=== PATIENT | female | born 1930 | race Caucasian/White ===

== ENCOUNTER 2020-02-02 19:10 | Inpatient (IN) ==
[2020-02-02] MEDS ORDERED: DUONEB (A & A) INH ONE (20:54)
[2020-02-02 21:27] LABS: BASO# 0.26 X1000 (0.0-0.2); BASO% 1.6 % (0.0-0.8); HEMATOCRIT 44.7 % (37.0-47.0); HEMOGLOBIN 14.5 g/dL (12.0-16.0); IMM GRAN# 1.21 X1000 (0.0-0.04); IMM GRAN% 7.6 % (0.0-0.5); LYMPH# 2.05 X1000 (1.2-3.4); LYMPH% 12.8 % (20.5-51.1); MCH 30.5 PG (27-31); MCHC 32.4 g/dL (33-37); MCV 93.9 FL (81-99); MONO# 1.46 X1000 (0.11-0.59); MONO% 9.1 % (1.7-9.3); MPV 10.3 FL (7.4-10.4); NEUT# 11.04 X1000 (1.4-6.5); NEUT% 68.9 % (42.2-75.2); PLT 283 X1000 (130-400); RBC 4.76 XMIL (4.2-5.4); RDW 14.2 % (11.5-14.5); WBC 16.02 X1000 (4.8-10.8)
--- NOTE | 2020-02-02 21:34 | Diag Imaging Result Doc PS360 ---
EXAM: CHEST-2 VIEWS 02/02/2020 HISTORY: cough TECHNIQUE: PA and lateral chest COMMENT: Compared to 01/31/2020 the lung bases are slightly clearer and better expanded. There is still some hazy opacity in the left costophrenic angle which may be due to fibrosis or a fat pad. This is slightly worse than on the previous study of 01/08/2020 however. IMPRESSION: Improved pulmonary edema and/or pneumonia. Electronically signed by Gume Lay 02/02/2020 9:32 PM
[2020-02-02 21:40] LABS: BANDS 3 % (0-1); LYMPHS 15 % (21-51); MONO 6 % (1-9); SEGS 73 % (42-75)
[2020-02-02 21:47] LABS: ALBUMIN 3.8 g/dL (3.5-5.0); CALCIUM 9.2 mg/dL (8.8-10.2); CREATININE 1.7 mg/dL (0.5-0.9); POTASSIUM 4.8 mmol/L (3.5-5.1); TOTAL BILIRUBIN 0.21 mg/dL (0.20-1.00); TOTAL PROTEIN 7.5 g/dL (6.3-8.3)
--- NOTE | 2020-02-02 23:43 | PROVIDER DOCUMENTATION ---
This chart was entered by Carmel Bermudez Scribe, acting as scribe for Harsh Hebert MD. HPI-General Adult - General Chief Complaint: Cold Symptoms Stated Complaint: "wants to feel better" Time Seen by Provider: 02/02/20 20:29 Source: patient Allergies/Adverse Reactions: Patient Allergies Allergy/AdvReac Type Severity Reaction Status Date / Time promethazine HCl * Allergy Mild RASH Verified 01/31/20 16:18 [From Mepergan] meperidine HCl * Allergy RASH Verified 01/31/20 16:18 [From Mepergan] procaine HCl * AdvReac Unknown palpatation Verified 01/31/20 16:18 [From Novocain] s Home Medications: Home Medication List Medication Instructions Recorded Confirmed Last Taken Type Amiodarone HCl 100 mg PO DAILY 11/03/15 02/02/20 07/26/16 07:30 History Biotin 1 mg PO DAILY 11/03/15 02/02/20 07/26/16 07:30 History Calcium 600 mg PO BID 11/03/15 02/02/20 07/26/16 07:30 History Carvedilol 12.5 mg PO BID 11/03/15 02/02/20 07/26/16 07:30 History Clopidogrel [Plavix] 75 mg PO DAILY 11/03/15 02/02/20 07/26/16 07:30 History Furosemide 40 mg PO BID 11/03/15 02/02/20 07/26/16 07:30 History Levothyroxine Sodium 75 mcg PO QAM 11/03/15 02/02/20 07/26/16 07:30 History Potassium Chloride E.r. [Klor-Con] 10 meq PO DAILY 11/03/15 02/02/20 07/26/16 07:30 History CefDINIR [Omnicef] 300 mg PO BID #20 capsule 07/29/16 02/02/20 Unknown Rx Alprazolam 1 tab PO QHS PRN 04/11/19 02/02/20 Unknown History Ascorbic Acid [Vitamin C] 1 tab PO DAILY 04/11/19 02/02/20 Unknown History Ergocalciferol (Vitamin D2) 1 cap PO DIRECTED 04/11/19 02/02/20 Unknown History [Vitamin D] Gabapentin 1 cap PO BID 04/11/19 02/02/20 Unknown History Hydrocodone Bit/Acetaminophen 1 tab PO TID 04/11/19 02/02/20 Unknown History [Hydrocodon-Acetaminophen 5-325] Lisinopril 1 tab PO DAILY 04/11/19 02/02/20 Unknown History Levofloxacin [Levaquin] 500 mg PO DAILY #5 tab 01/31/20 02/02/20 Unknown Rx Methylprednisolone [Medrol Dosepak] 4 mg PO DIRECTED #1 pkg 01/31/20 02/02/20 Unknown Rx - History of Present Illness -Gen Adult Nature of Presenting Problems: pt is a 89 yr old female presenting with continued cough, shortness of breath and weakness which started about 10days ago. PCP prescribed zpak and she has been doing breathing treatment at home without improved sxs.. pt also reports HTN today, reports she was seen 2 days ago and refused admission. pt admits weakness worsening, increased cough, no relief with Levaquin and steroids [id number] Review of Systems - Adult - REVIEW OF SYSTEMS - ADULT Constitutional: reports: chills, fatique. denies: fever Eyes: reports: no symptoms reported Ears, Nose, Mouth & Throat: denies: ear pain, sinus problem, throat pain Cardiovascular: reports: no symptoms reported Respiratory: reports: cough, dyspnea on exertion, shortness of breath, wheezing Gastrointestinal: denies: abdominal pain, diarrhea, nausea, vomiting Genitourinary: denies: dysuria, frequency, flank pain Musculoskeletal: reports: muscle aches, muscle weakness. denies: back pain Integumentary: reports: no symptoms reported Neurological: denies: dizziness/vertigo, headache/migraines Psychiatric: reports: no symptoms reported Endocrine: reports: no symptoms reported Hematologic/Lymphatic: reports: no symptoms reported Allergic/Immunologic: reports: no symptoms reported All Other Systems: Reviewed and Negative Past History - Adult - PAST MEDICAL HISTORY-ADULT Review of Records: reports: Old Records Reviewed, Nursing Assessment Review, Medications Reviewed, Social history reviewed & non-contributory. Major Childhood Illnesses: reports: denies history Cardiovascular: reports: CHF, HTN, pacemaker Respiratory: reports: COPD Gastrointestinal: reports: denies history Obstetrical/Gynecological: reports: denies history Genitourinary: reports: denies history Musculoskeletal: reports: denies history Neurological: reports: denies history Endocrine/Immune: reports: thyroid disorder (hypo) Other Conditions: reports: denies history - PRIOR SURGERIES/PROCEDURES Surgical/Procedure History: reports: appendectomy, orthopedic (extremity), other (cataract) - IMMUNIZATION STATUS Childhood Immunizations: See Nurse Assessment Flu Vaccine: See Nurse Assessment - FAMILY HISTORY Family History: reviewed, not pertinent - SOCIAL HISTORY Smoking: quit greater than 1 year Substance Use: denies Living Situation: family Physical Exam-General - PHYSICAL EXAM-ADULT Initial Vital Signs Reviewed: Yes - CONSTITUTIONAL General Appearance: alert, no apparent distress - EYES Eyes: PERRL/EOMI - HEAD, EARS, NOSE, MOUTH & THROAT HENMT: normocephalic/atraumatic, moist mucous membranes, TMs normal, pharynx normal, hearing deficit - NECK Neck: non-tender, full range of motion, supple, normal inspection - RESPIRATORY Respiratory: chest non-tender, normal breath sounds, no respiratory distress, no accessory muscle use, wheezing (bibasilar wheezing) - CARDIOVASCULAR Cardiovascular: normal peripheral pulses, regular rate, rhythm - GASTROINTESTINAL (ABDOMEN) Abdominal Exam: normal bowel sounds, non tender, soft - LYMPHATIC Lymphatic: no adenopathy - MUSCULOSKELETAL Back Exam: normal inspection Extremity: normal range of motion, non-tender, normal gait, normal inspection - SKIN Integumentary: normal color, normal turgor, warm/dry - NEUROLOGIC Neurologic: grossly normal, no motor/sensory deficits - PSYCHIATRIC Psych/Mental Status: normal mood/affect, normal thought content, normal thought process, oriented x 3 Progress - PLAN OF CARE/RESULTS Progress/Plan/Lab Results: Vital Signs - 8 hr 02/02/20 19:17 Temperature 98.6 F Pulse Rate 62 Respiratory Rate 18 Blood Pressure 156/81 O2 Sat by Pulse Oximetry 93 L Orders Category Date Time Status NEWS Score 2-4:Order NEWS Lactate Series NOW Care 02/02/20 19:22 Active LACTATE, PLASMA [CHEM] Q3H Lab 02/02/20 19:45 Uncollected LACTATE, PLASMA [CHEM] Q3H Lab 02/02/20 22:45 Uncollected LACTATE, PLASMA [CHEM] Q3H Lab 02/03/20 01:45 Uncollected Result Diagrams: 02/02/20 21:14 02/02/20 21:14 - REASSESSMENT Reassessment #1 Time Reassessed: 11:00 Status: improving (Duoneb has helped a little but but still coughing and some s ob. Hospitalised paged for admission) - XRAY 1 XRAY Study: Chest (improved pul. edema and /or pneumonia) Impression: Abnormal ( Signed EXAM: CHEST-2 VIEWS 02/02/2020 HISTORY: cough TECHNIQUE: PA and lateral chest COMMENT: Compared to 01/31/2020 the lung bases are slightly clearer and better expanded. There is still some hazy opacity in the left costophrenic angle which may be due to fibrosis or a fat pad . This is slightly worse than on the previous study of 01/08/2020 however. IMPRESSION: Improved pulmonary edema and/or pneumonia. Electronically signed by Gume Lay 02/02/2020 9:32 PM 02/02/202131 Interpreting Physician: Gume Lay MD Dictated Date/Time: 02/02/202130 cc: Harsh Hebert MD; None,PCP) Comparison with other Films: changes noted (improvement from 01/31/20) - CONSULTS/PCP/HOSPITALIST Notification #1 *Consult/PCP/Hospitalist*: Dr. Guzmán Time Discussed: 23:42 Consult Disposition: Admit (accepts admission) Departure - Departure Date of Disposition Decision: 02/02/20 Time of Disposition Decision: 23:40 DIAGNOSIS: Renal insufficiency COPD (chronic obstructive pulmonary disease) Qualifiers: COPD type: COPD with acute exacerbation Qualified Code(s): J44.1 - Chronic obstructive pulmonary disease with (acute) exacerbation CHF (congestive heart failure) Qualifiers: Heart failure type: unspecified Heart failure chronicity: acute on chronic Mike lified Code(s): I50.9 - Heart failure, unspecified Disposition: ADMITTED INPATIENT 09 Certified Medical Emergency: Emergent Condition: Stable Referrals and Follow-Ups: None,PCP [Primary Care Provider] - - Critical Care Note This patient required my direct & personal management of CC.: No Attestation - Physician/ BUSTER Attestation Patient care was provided by Advanced Practice Provider:: No The physician spent face to face time with patient:: Yes Advanced Practice Provider documentation review:: Supervising physician onsite and consulted in the evaluation and care of this patient. The physician did have a face to face encounter with the patient. This chart was documented by the indicated scribe, (Carmel Bermudez, [place]) and accurately reflects the services I performed and decisions made by me, Harsh Hebert MD, as attested by the provider's signature.
[2020-02-03] MEDS ORDERED: LASIX IV ONE (00:21)
[2020-02-03 01:09] LABS: URINE SOURCE CLEAN CATCH
[2020-02-03] MEDS ORDERED: APRESOLINE IV PRN (01:31)
[2020-02-03] MEDS ORDERED: TYLENOL PO PRN (02:04)
[2020-02-03 02:12] LABS: BILIRUBIN URINE NEGATIVE (NEGATIVE); BLOOD URINE NEGATIVE (NEGATIVE); COLOR YELLOW; GLUCOSE URINE NEGATIVE (NEGATIVE); KETONE URINE NEGATIVE (NEGATIVE); LEUKOCYTES URINE NEGATIVE (NEGATIVE); NITRITE URINE NEGATIVE (NEGATIVE); PH URINE 7.5; PROTEIN URINE NEGATIVE (NEGATIVE); TURBIDITY URINE CLEAR (CLEAR); UROBILINOGEN URINE NORMAL (NORMAL)
[2020-02-03 02:13] LABS: UR EPITHELIAL CELLS <10 /HPF (<10); URINE BACTERIA NEGATIVE /HPF; URINE RBC <10 /HPF (<10); URINE WBC <10 /HPF (<10)
[2020-02-03 05:03] LABS: BASO# 0.27 X1000 (0.0-0.2); BASO% 1.6 % (0.0-0.8); HEMATOCRIT 45.8 % (37.0-47.0); HEMOGLOBIN 14.8 g/dL (12.0-16.0); IMM GRAN# 1.02 X1000 (0.0-0.04); IMM GRAN% 6.2 % (0.0-0.5); LYMPH# 2.49 X1000 (1.2-3.4); LYMPH% 15.1 % (20.5-51.1); MCH 30.2 PG (27-31); MCHC 32.3 g/dL (33-37); MCV 93.5 FL (81-99); MONO# 1.58 X1000 (0.11-0.59); MONO% 9.6 % (1.7-9.3); MPV 10.2 FL (7.4-10.4); NEUT# 11.08 X1000 (1.4-6.5); NEUT% 67.5 % (42.2-75.2); PLT 287 X1000 (130-400); RDW 14.1 % (11.5-14.5); WBC 16.44 X1000 (4.8-10.8)
[2020-02-03 05:22] LABS: CALCIUM 9.1 mg/dL (8.8-10.2); CREATININE 1.8 mg/dL (0.5-0.9); POTASSIUM 4.2 mmol/L (3.5-5.1)
--- NOTE | 2020-02-03 05:42 | HISTORY AND PHYSICAL ---
CHIEF COMPLAINT: Cold symptoms. HISTORY OF PRESENT ILLNESS: This is an 89-year-old female who reported here two days ago and was given a Z-Nik and Levaquin. She refused admission two days ago and was discharged home with these medications. She has had a history of ten days of increased shortness of breath and cough with weakness. She has a history of hypertension, COPD, coronary artery disease, CHF, hypothyroidism. She does have a pacemaker implanted. Her initial workup, chest x-ray stated improved pulmonary edema and/or pneumonia. A CT of the thorax without contrast is pending. She was noted to have leukocytosis, however, she has been on oral steroids so this is unreliable. She has not been febrile from what I understand. At any rate, at this time she will be admitted for evaluation and treatment. PAST MEDICAL HISTORY: See HPI. PREVIOUS SURGICAL HISTORY: Pacemaker implantation, appendectomy, back surgery, right shoulder surgery, cardiac stenting, cataract removal. SOCIAL HISTORY: No alcohol or illicit drug use. No tobacco presently. She was a former smoker for many years. Stopped smoking I think maybe eight years ago but did smoke a pack per day for 35 or greater years. FAMILY HISTORY: She stated was positive for hypertension and diabetes. ALLERGIES: Phenergan, Demerol, procaine and novocaine. HOME MEDICATIONS: Medrol Dosepak as directed, alprazolam 0.25 mg p.o. night, amiodarone 100 mg p.o. daily, vitamin C 1000 mg daily, biotin 1 mg p.o. daily, calcium 600 mg p.o. daily, carvedilol 12.5 mg p.o. b.i.d., Plavix 75 mg p.o. daily, vitamin D2 50,000 units as directed, Lasix 40 mg p.o. b.i.d., gabapentin 100 mg p.o. b.i.d., [place] 5 one p.o. t.i.d., Levaquin 500 mg p.o. daily, levothyroxine 75 mcg p.o. daily, lisinopril 40 mg p.o. daily, potassium chloride 10 mEq p.o. daily. REVIEW OF SYSTEMS: Fourteen-point review of systems conducted with the patient. Pertinent positives listed above in the HPI. All other systems reviewed and found to be negative. PHYSICAL EXAMINATION: VITAL SIGNS: Temperature 98.6, pulse 60, respirations 18, blood pressure 196/88, oxygen saturation 94% on room air. GENERAL: Somewhat agitated 89-year-old female lying in the ER stretcher. She is alert and oriented times 3. Answers all questions appropriately. Is very irritated, stating over and over she just wants to feel better. She is in no acute distress at this time. HEENT: Head is atraumatic, normocephalic. Pupils equal, round and reactive to light. Extraocular eye movement is intact. Sclerae are anicteric. Conjunctiva is pink. Oral mucosa is moist. NECK: Supple. No JVD. No thyromegaly. Trachea is midline. No cervical lymphadenopathy. CARDIAC: S1, S2 appreciated. No murmurs, gallops, rubs. LUNGS: Bilateral crepitations noted, decreased bilaterally. No wheezing. Symmetric rise and fall with respirations. ABDOMEN: Soft, nondistended, nontender. Bowel sounds present in all four quadrants. Normoactive. No pulsatile mass. No organomegaly. EXTREMITIES: No clubbing, cyanosis or edema. Two-plus pedal pulses bilaterally. GENITOURINARY: No bladder distention. Patient voids. Otherwise deferred. NEUROLOGICAL: She is alert and oriented times 3. No focal motor deficits. Otherwise nonfocal examination. DIAGNOSTIC DATA: Chest x-ray shows improved pulmonary edema and/or pneumonia at the bilateral bases. Clear and better expanded than previous examination. Noncontrasted CT of the chest is pending. LABORATORY DATA: WBC 16.02. Hemoglobin 14.5. Hematocrit 44.7. Platelet count 289. Sodium 141. Potassium 4.8. Chloride 101. Carbon dioxide 28. BUN 39. Creatinine 1.7. Glucose 174. Urine pending. ASSESSMENT: 1. Chronic obstructive pulmonary disease with exacerbation. 2. Questionable bilateral lower lobe pneumonia. 3. Congestive heart failure. 4. Hypertension. 5. Hypothyroidism. PLAN: Admit patient to the medical floor. Continue Levaquin [address] of the thorax has been ordered. Hopefully will help differentiate between pulmonary edema and pneumonia. Will discontinue steroids at this time. Continue patient's home medications for hypertension. Will also add a p.r.n. medication as she is acutely hypertensive now. Will give hydralazine 10 mg IV as needed for systolic blood pressure greater than 165. DuoNebs. Echocardiogram tomorrow. Follow laboratory data. Further recommendations per patient clinical course. Dictated by ARANZA Johnson for Manjeet Gaspar MD cc: ARANZA Johnson MD
[2020-02-03] MEDS: SYNTHROID PO SCH (06:13)
--- NOTE | 2020-02-03 07:07 | Diag Imaging Result Doc PS360 ---
EXAM: CHEST-1 VIEW 02/03/2020 HISTORY: news TECHNIQUE: AP portable at 0616 COMMENT: There is no evidence of acute cardiac or pulmonary disease and compared to 02/02/2020 there has been no significant change. IMPRESSION: Stable chest. Electronically signed by Gume Lay 02/03/2020 7:04 AM
--- NOTE | 2020-02-03 07:24 | Diag Imaging Result Doc PS360 ---
EXAM: CT THORAX W/O CONTRAST INDICATION: PNA? TECHNIQUE: This exam was performed using automated exposure control, adjustment of mA or kV according to patient size, and/or use of iterative reconstruction technique. COMPARISON: None. FINDINGS: There are mild patchy groundglass opacities in the lower lobes bilaterally, the right middle lobe, and the lingula likely representing mild air trapping. Mild atypical pneumonitis is a possibility, however. There is a calcified granuloma in the right lower lobe and there are several scattered tiny noncalcified nodules bilaterally. All of the nodules are 4 mm or less and statistically most likely represent noncalcified granulomata. There is no pleural fluid collection and no pneumothorax. There are a few calcified mediastinal and right hilar lymph nodes indicating prior granulomatous disease. There are coronary artery calcifications. There is no cardiomegaly. A pacemaker is noted. Limited views of the upper abdomen reveal pancreatic and left renal atrophy. IMPRESSION: 1.Mild patchy groundglass opacities in the mid and lower lung zones suggesting air trapping. However, mild atypical pneumonitis is also a possibility. 2.Other incidental/nonacute findings detailed above. Electronically signed by Kirean Matthews 02/03/2020 7:21 AM
[2020-02-03] MEDS ORDERED: LASIX PO SCH (09:00)
[2020-02-03] MEDS: NEURONTIN PO SCH ×2 (09:33→21:26)
[2020-02-03] MEDS: KLOR-CON PO SCH (09:33)
[2020-02-03] MEDS: NORCO-5 PO SCH ×3 (09:33→21:26)
[2020-02-03] MEDS: VITAMIN C PO SCH (09:34)
[2020-02-03] MEDS: LEVAQUIN PO SCH (09:34)
[2020-02-03] MEDS: PLAVIX PO SCH (09:34)
[2020-02-03] MEDS: CORDARONE PO SCH (09:35)
[2020-02-03] MEDS: CALTRATE 600 PO SCH ×2 (09:35→21:26)
[2020-02-03] MEDS: COREG PO SCH ×2 (09:35→21:26)
[2020-02-03] MEDS: PRINIVIL PO SCH (09:35)
[2020-02-03] MEDS: BIOTIN PO SCH (10:36)
[2020-02-03 11:13] LABS: INR 1.01; PROTIME 13.5 Seconds (11.0-16.0)
[2020-02-03 11:14] LABS: PTT 25.2 Seconds (22.3-41.8)
[2020-02-03 11:39] LABS: BASO# 0.12 X1000 (0.0-0.2); BASO% 0.9 % (0.0-0.8); HEMATOCRIT 44.4 % (37.0-47.0); HEMOGLOBIN 14.6 g/dL (12.0-16.0); IMM GRAN% 5.2 % (0.0-0.5); LYMPH# 3.08 X1000 (1.2-3.4); LYMPH% 22.7 % (20.5-51.1); MCH 30.9 PG (27-31); MCHC 32.9 g/dL (33-37); MCV 93.9 FL (81-99); MONO# 1.33 X1000 (0.11-0.59); MONO% 9.8 % (1.7-9.3); MPV 10.4 FL (7.4-10.4); NEUT# 8.32 X1000 (1.4-6.5); NEUT% 61.4 % (42.2-75.2); PLT 291 X1000 (130-400); RBC 4.73 XMIL (4.2-5.4); RDW 14.4 % (11.5-14.5); WBC 13.55 X1000 (4.8-10.8)
[2020-02-03 12:32] LABS: BANDS 8 % (0-1); LYMPHS 18 % (21-51); MONO 12 % (1-9); SEGS 58 % (42-75)
--- NOTE | 2020-02-03 14:32 | PROGRESS NOTE ---
DATE: 02/03/2020 BRIEF PROGRESS NOTE: Patient admitted with ongoing cough and dyspnea. She was in the ER a few days ago, diagnosed with pneumonia, sent home on steroids and Levaquin. She returns because she was continuing to have cough and had some slight worsening of her shortness of breath. On initial evaluation here, her x-ray actually looked improved. CT showed air trapping but no definitive pneumonia. She did have elevated creatinine of uncertain significance. Her most recent repeat just a few days ago was the same, but prior to the 30 of January, her creatinine was significantly better at 1.3, so she may have a little bit of an acute kidney injury as well. Patient does have some underlying COPD and is a former smoker, but no wheezing or significantly decreased air entry was noted to suggest COPD exacerbation. As her pneumonia appeared to be improving, she was continued on Levaquin. As her BNP was slightly elevated, she was given a dose of Lasix and is symptomatically improved this afternoon. Given possible acute kidney injury, we will hold off on further diuresis and monitor. If the patient continues to do well, then may be able to discharge home tomorrow. Given elevation in BNP and improvement after being given Lasix, echo was obtained but the read is pending at this time.
[2020-02-03 15:10] LABS: ALB/GLOB RATIO 1.1; ALBUMIN 3.5 g/dL (3.5-5.0); CALCIUM 9.1 mg/dL (8.8-10.2); CREATININE 1.8 mg/dL (0.5-0.9); POTASSIUM 4.1 mmol/L (3.5-5.1); TOTAL BILIRUBIN 0.45 mg/dL (0.20-1.00); TOTAL PROTEIN 6.8 g/dL (6.3-8.3)
[2020-02-03] MEDS: XANAX PO PRN (23:42)
[2020-02-04 07:24] LABS: BASO# 0.23 X1000 (0.0-0.2); BASO% 2.1 % (0.0-0.8); EOS# 0.09 X1000 (0.0-0.7); EOS% 0.8 % (0.0-10.0); HEMATOCRIT 44.7 % (37.0-47.0); HEMOGLOBIN 14.2 g/dL (12.0-16.0); IMM GRAN# 1.09 X1000 (0.0-0.04); IMM GRAN% 9.7 % (0.0-0.5); LYMPH# 4.08 X1000 (1.2-3.4); LYMPH% 36.4 % (20.5-51.1); MCH 30.2 PG (27-31); MCHC 31.8 g/dL (33-37); MCV 95.1 FL (81-99); MONO# 1.49 X1000 (0.11-0.59); MONO% 13.3 % (1.7-9.3); NEUT# 4.22 X1000 (1.4-6.5); NEUT% 37.7 % (42.2-75.2); PLT 290 X1000 (130-400); RDW 14.5 % (11.5-14.5)
[2020-02-04 07:40] LABS: CALCIUM 9.4 mg/dL (8.8-10.2); CREATININE 1.9 mg/dL (0.5-0.9); POTASSIUM 4.5 mmol/L (3.5-5.1)
[2020-02-04] MEDS: SYNTHROID PO SCH (07:45)
[2020-02-04] MEDS: NORCO-5 PO SCH ×3 (08:20→20:51)
[2020-02-04] MEDS: COREG PO SCH ×2 (08:21→20:53)
[2020-02-04] MEDS: CALTRATE 600 PO SCH ×2 (08:21→20:53)
[2020-02-04] MEDS: LEVAQUIN PO SCH (08:21)
[2020-02-04] MEDS: VITAMIN C PO SCH (08:21)
[2020-02-04] MEDS: NEURONTIN PO SCH ×2 (08:21→20:51)
[2020-02-04] MEDS: LASIX PO SCH (08:21)
[2020-02-04] MEDS: PLAVIX PO SCH (08:21)
[2020-02-04] MEDS: BIOTIN PO SCH (08:21)
[2020-02-04] MEDS: KLOR-CON PO SCH (08:22)
[2020-02-04] MEDS: PRINIVIL PO SCH (08:22)
[2020-02-04] MEDS: CORDARONE PO SCH (08:22)
--- NOTE | 2020-02-04 14:12 | PROGRESS NOTE ---
DATE: 02/04/2020 SUBJECTIVE: The patient reports feeling better. She is not requiring any oxygen supplementation at this time. She is able to get up and walk some and not getting badly short of breath, just a little bit according to her. OBJECTIVE: Vital Signs: Temperature 98 degrees, heart rate 59, respiratory rate 18, blood pressure 133/77. O2 saturation 93% on room air. General: This is an 89-year-old female lying in bed, in no acute distress. Cardiovascular: S1, S2 heard. No murmurs, gallops, or rubs. Regular rate and rhythm. Respiratory: Exam bilateral crepitations noted with decreased breath sounds globally. There is no wheezing. Patient is not using any accessory muscles or having work of breathing. Abdomen: Soft, nontender to palpation. Bowel sounds present. No organomegaly. Extremities: No clubbing, cyanosis, or edema. Peripheral pulses present in both legs. Neurological: Patient is alert and oriented x3. Moves 4 extremities. LABORATORY DATA: Reviewed. ASSESSMENT AND PLAN: 1. Bilateral lower lobe pneumonia. That condition is getting better. Patient is not requiring any oxygen. The patient although is getting a little bit short of breath, so considering that this patient lives alone, I prefer to go ahead and keep her 1 more day in the hospital and if she feels better tomorrow then we will let her go. 2. Chronic obstructive pulmonary disease exacerbation secondary to condition #1. We will continue with breathing treatments every 4 hours and steroids as well. 3. Congestive heart failure. I think at this point, patient is stable from that condition. We will continue home medications. 4. Hypertension. Blood pressure is under control. We will continue with the same management. 5. Hypothyroidism. We will continue home doses of Synthroid. 6. Disposition. If this patient continues to feel better, then will discharge her tomorrow. cc: Binh Rodriguez MD
[2020-02-04] MEDS: XANAX PO PRN (22:55)
[2020-02-05] MEDS ORDERED: MELATONIN PO ONE (02:00)
[2020-02-05] MEDS: SYNTHROID PO SCH (06:17)
[2020-02-05 08:03] LABS: POTASSIUM 4.1 mmol/L (3.5-5.1)
[2020-02-05 08:38] LABS: BASO# 0.26 X1000 (0.0-0.2); BASO% 2.3 % (0.0-0.8); EOS% 0.9 % (0.0-10.0); HEMATOCRIT 43.6 % (37.0-47.0); HEMOGLOBIN 13.8 g/dL (12.0-16.0); IMM GRAN# 0.95 X1000 (0.0-0.04); IMM GRAN% 8.4 % (0.0-0.5); LYMPH# 3.91 X1000 (1.2-3.4); LYMPH% 34.5 % (20.5-51.1); MCH 30.1 PG (27-31); MCHC 31.7 g/dL (33-37); MONO% 14.1 % (1.7-9.3); MPV 10.4 FL (7.4-10.4); NEUT# 4.52 X1000 (1.4-6.5); NEUT% 39.8 % (42.2-75.2); PLT 265 X1000 (130-400); RBC 4.59 XMIL (4.2-5.4); RDW 14.2 % (11.5-14.5); WBC 11.34 X1000 (4.8-10.8)
[2020-02-05] MEDS: BIOTIN PO SCH (08:39)
[2020-02-05] MEDS: NEURONTIN PO SCH (08:40)
[2020-02-05] MEDS: NORCO-5 PO SCH (08:40)
[2020-02-05] MEDS: LEVAQUIN PO SCH (08:40)
[2020-02-05] MEDS: PLAVIX PO SCH (08:40)
[2020-02-05] MEDS: CALTRATE 600 PO SCH (08:40)
[2020-02-05] MEDS: LASIX PO SCH (08:41)
[2020-02-05] MEDS: KLOR-CON PO SCH (08:41)
[2020-02-05] MEDS: CORDARONE PO SCH (08:41)
[2020-02-05] MEDS: PRINIVIL PO SCH (08:41)
[2020-02-05] MEDS: COREG PO SCH (08:41)
[2020-02-05] MEDS: VITAMIN C PO SCH (08:42)
--- NOTE | 2020-02-05 09:00 | ECHO REPORT ---
ORDER DATE: 02/03/2020 MEASUREMENTS: Septal thickness 1.2, left ventricular internal diameter end-diastole 5.3, posterior wall thickness 1.2, left ventricular internal diameter end-systole 2.4, aortic root 3.6, left atrium 3.9. SUMMARY: 1. Adequate quality study. 2. The aortic valve is trileaflet and opens adequately on 2-dimensional images. The peak gradient across the aortic valve is less than 10 mmHg. Mitral, tricuspid and pulmonic valves are without evidence of structural abnormality with mild tricuspid regurgitation and mild pulmonic insufficiency. The estimated systolic PA pressure by Doppler is 45 to 50 mmHg suggesting mild to moderate pulmonary hypertension. The aortic root is normal size. 3. Normal left ventricular chamber size with mild concentric left ventricular hypertrophy demonstrated. The left ventricle appears hyperdynamic with estimated left ventricular ejection fraction greater than 75%. No regional wall motion abnormality can be appreciated. The left atrium is mildly enlarged. The right atrium and right ventricle are normal in size with grossly preserved right ventricular systolic function. Pacemaker lead evident right ventricle and right atrium 4. No pericardial effusion. 5. Appearance of the inferior vena cava suggests normal central venous pressure. CONCLUSIONS: 1. Mild tricuspid regurgitation with mild to moderate pulmonary hypertension by Doppler. 2. Mild concentric left ventricular hypertrophy with the left ventricle appearing hyperdynamic with estimated left ventricular ejection fraction greater than 75%. 3. Mild left atrial enlargement. 4. Pacemaker lead evident in right atrium and right ventricle. cc: MD Adin Larios CRNP
[2020-02-05 10:43] LABS: BANDS 6 % (0-1); LYMPHS 46 % (21-51); MONO 16 % (1-9); SEGS 28 % (42-75)
[2020-02-05 11:17] VITALS: BP 103/68
--- NOTE | 2020-02-05 21:58 | DISCHARGE SUMMARY ---
ADMISSION DATE: 02/03/2020 DISCHARGE DATE: 02/05/2020 DIAGNOSES: 1. Bilateral lower lobe pneumonia, improved. 2. Chronic obstructive pulmonary disease exacerbation, improved. 3. Congestive heart failure, stable. 4. Hypertension. 5. Hypothyroidism. CONSULTATIONS: None. PROCEDURES: 1. Chest x-ray done on admission showed improved pulmonary edema, nor pneumonia. 2. CT of the chest showed mild patchy ground-glass opacities in the mid lower lung zone, suggesting air trapping. However mild atypical pneumonitis is also a possibility. 3. Echocardiogram Doppler showed mild tricuspid regurgitation with mild to moderate pulmonary hypertension with ejection fraction of 75%. HOSPITAL COURSE: Briefly, this is an 89-year-old female who was here 2 days ago. She was given a prescription for Z-Nik and Levaquin but unfortunately she apparently failed outpatient therapy for pneumonia. The patient was complaining of shortness of breath and leukocytosis so she was admitted for further evaluation and treatment. She was started on broad-spectrum antibiotics and she is feeling fine. She has received antibiotics for today so I think, at this point, we will continue with oral antibiotics at this time. The patient may need to see her primary care physician in her office. DISCHARGE PHYSICAL EXAMINATION: Temperature 97.5 degrees, heart rate 60, respiratory rate 16, blood pressure 103/60, O2 saturation 100% on room air. General examination: This is an 89-year- old female lying in bed, in no acute distress. Cardiovascular: S1, S2 heard. No murmurs, gallops, or rubs. Regular rate and rhythm. Respiratory exam: Clear bilaterally to auscultation. No work of breathing or using accessory muscles. Abdomen: Soft, nontender to palpation. Bowel sounds present. No organomegaly. Extremities: No clubbing, cyanosis, or edema. Peripheral pulses present in both legs. Neurological: The patient is alert and oriented x3, moves 4 extremities. DISCHARGE DISPOSITION: Home to self-care. DISCHARGE MEDICATIONS: 1. Cefuroxime 500 mg 1 tablet p.o. twice daily for 7 days. 2. Furosemide 40 mg 1 tablet p.o. twice daily. 3. Coreg 12.5 mg 1 tablet p.o. b.i.d. 4. Biotin 1 mg 1 tablet p.o. daily. 5. Levothyroxine 75 mcg 1 tablet p.o. daily. 6. Plavix 75 mg 1 tablet p.o. daily. 7. Amiodarone 100 mg 1 tablet p.o. daily. 8. Potassium chloride 10 mEq 1 tablet p.o. daily. 9. Calcium 600 mg 1 tablet p.o. daily. 10. Gabapentin 100 mg 1 tablet p.o. twice daily. 11. [place] 10 1 tablet p.o. 3 times per day as needed for pain. 12. Lisinopril 1 tablet p.o. daily, 40 mg. 13. Ergocalciferol 1 tablet p.o. daily. 14. Alprazolam 1 tablet p.o. at bedtime as needed, 0.25 mg. 15. Levofloxacin 500 mg 1 tablet p.o. daily. 16. Medrol Dosepak 1 tablet as directed. TIME SPENT: Time discharging this patient, 30 minutes. cc: Binh Rodriguez MD
[2020-02-08] MEDS ORDERED: VITAMIN D PO SCH (09:00)
== END 2020-02-05 12:56 | disposition home health service (06) | DRG 190 ==
LOC: ED 19:10 → SUATTDRO 02-03 02:06 → EDIPHOLD 02-03 02:06 → 4N 02-03 12:55
PROVIDERS: ATTEND Internal Medicine